=== PATIENT | female | born 1945 | race Caucasian/White ===

== ENCOUNTER → 2017-08-02 09:20 | Outpatient (CLI) | payer BC, MEDICARE ==
[~2017-08-02 09:20] MED LIST: ARMOUR THYROID90 MG PO; DIOVAN HCT 320/1 TA2 PO; MULTIPLE VITAMI1 TA1 PO; NORVASC5 MG PO; THYROID; ZANAFLEX4 MG PO
[2017-08-22 08:56] VITALS: BMI 39.0
== END | disposition home or self-care (01) ==
LOC: D.CT 09:20
DX: N19 Unspecified kidney failure (principal); Z87.442 Personal history of urinary calculi

== ENCOUNTER → 2017-08-03 09:25 | Outpatient (CLI) | payer BC, MEDICARE ==
[2017-08-22 08:56] VITALS: BMI 39.0
== END | disposition home or self-care (01) ==
LOC: D.US 09:25
DX: N28.89 Other specified disorders of kidney and ureter (principal)

== ENCOUNTER → 2017-08-13 13:52 | Outpatient (CLI) | payer BC, MEDICARE ==
[2017-08-22 08:56] VITALS: BMI 39.0
== END | disposition home or self-care (01) ==
LOC: D.CT 13:52
DX: N28.89 Other specified disorders of kidney and ureter (principal)

== ENCOUNTER 2017-08-22 07:41 | Outpatient (CLI) | payer BC, MEDICARE ==
[~2017-08-22] VITALS: Ht 162.6 cm; Wt 103.2 kg
[2017-08-22] MEDS ORDERED: THYROID (08:43)
[2017-08-22 08:44] LABS: BASOPHILS 1.1 % (0-2); EOSINOPHILS 7.1 % (0-7); HEMOGLOBIN 12.1 g/dL (12-16); IMMATURE GRANULOCYTES 0.2 % (0-5); LYMPHOCYTES 30.2 % (15-50); MCH 28.1 pg (26.0-34.0); MCHC 31.8 g/dL (31.0-37.0); MCV 88.4 fL (80.0-100.0); MEAN PLATELET VOLUME 9.8 fL (7.4-10.4); MONOCYTES 6.8 % (2-11); NEUTROPHILS 54.6 % (40-80); PLATELET COUNT 217 10x3/uL (130-400); WBC 5.5 10x3/uL (4.8-10.8)
[2017-08-22] MEDS ORDERED: DIOVAN HCT 320/1 TA2 PO (08:44)
[2017-08-22] MEDS ORDERED: ARMOUR THYROID90 MG PO (08:44)
[2017-08-22] MEDS ORDERED: MULTIPLE VITAMI1 TA1 PO (08:45)
[2017-08-22] MEDS ORDERED: ZANAFLEX4 MG PO (08:45)
[2017-08-22] MEDS ORDERED: NORVASC5 MG PO (08:45)
[2017-08-22 08:56] VITALS: BP 149/86; Ht 162.6 cm; Wt 103.2 kg
[2017-08-22 09:07] LABS: ANION GAP 11.5 mmol/L (8-16); CALCIUM 8.9 mg/dL (8.5-10.1); CARBON DIOXIDE 28.8 mmol/L (21.0-32.0); CREATININE - SERUM 1.1 mg/dL (0.6-1.3); POTASSIUM - SERUM 4.3 mmol/L (3.5-5.1)
[2017-08-22 09:08] LABS: APTT 26.2 SECONDS (22.8-39.4); INR 0.96 (0.85-1.17); PROTIME 12.4 SECONDS (11.6-15.0)
--- NOTE | 2017-08-22 15:01 | NUR ---
1130 SEE POST PROCEDURE VITAL SIGNS CHECKLIST FOR VITAL SIGN TRENDS.
--- NOTE | 2017-08-22 15:01 | NUR ---
5821 DR. MOSCOSO/DILMA LAWRENCE RN NOTIFIED OF BLOOD PRESSURES. ORDERS RECEIVED.
--- NOTE | 2017-08-22 15:02 | NUR ---
1345 BLOOD PRESSURE HAS IMPROVED, REPORT TO DILMA LAWRENCE RN.
== END 2017-08-22 16:30 | disposition home or self-care (01) ==
LOC: D.OPS 07:41 → D.SP 10:00 → D.OPS 10:00 → D.SP 10:15 → D.OPS 16:30
PROVIDERS: Specialist
DX: N28.89 Other specified disorders of kidney and ureter (principal); Z01.812 Encounter for preprocedural laboratory examination

== ENCOUNTER → 2018-12-16 14:07 | Outpatient (CLI) | payer BC, MEDICARE ==
[2017-08-22 08:56] VITALS: BMI 39.0
== END | disposition home or self-care (01) ==
LOC: D.HCCARDIO 14:07
PROVIDERS: ATTEND Internal Medicine Cardiovascular Disease
DX: I10 Essential (primary) hypertension (principal)